=== PATIENT | female | born 1940 | race Caucasian/White ===

== ENCOUNTER 2021-08-26 10:00 | Outpatient (CLI) | payer MEDICARE, OTHER | END 2021-08-26 10:01 | disposition home or self-care (01) | LOC: CSHMRI 10:00 | PROVIDERS: ATTEND Psychiatry & Neurology Neurology | DX: E85.4 Organ-limited amyloidosis (principal); I77.1 Stricture of artery; I61.1 Nontraumatic intracerebral hemorrhage in hemisphere, cortical; G93.89 Other specified disorders of brain; R90.82 White matter disease, unspecified | CPT/HCPCS: 70544; 70551 ==